=== PATIENT | female | born 1960 | race Caucasian/White ===

== ENCOUNTER 2021-03-29 15:51 | Emergency (ER) | payer MEDICARE ==
[2021-03-29 17:58] LABS: BASOPHIL 0.6 % (0-2); EOSINOPHIL 1.8 % (0-5); HCT 37.6 % (37.0-47.0); HGB 11.9 g/dl (12.5-16.0); LYMPHOCYTE 10.6 % (15-48); MCH 30.6 pg (25.0-31.0); MCHC 31.6 g/dL (32.0-36.0); MCV 96.7 fL (78.0-100.0); MONOCYTE 7.4 % (0-12); MPV 10.3 fL (6.0-9.5); NEUTROPHIL 79.3 % (41-80); NRBC 0; PLT 190 K/uL (150-400); RBC 3.89 M/uL (4.20-5.40); RDW 13.1 % (11.5-14.0)
[2021-03-29 18:19] LABS: BUN/CREAT RATIO (CALC) 11.5 RATIO; CREATININE 0.87 mg/dL (0.51-0.95); POTASSIUM 3.7 mmol/L (3.5-5.1)
== END 2021-03-29 19:25 | disposition home or self-care (01) ==
LOC: FER 15:51
PROVIDERS: Nurse Practitioner Family
DX: M25.561 Pain in right knee (principal); E03.9 Hypothyroidism, unspecified; F17.210 Nicotine dependence, cigarettes, uncomplicated; Z88.8 Allergy status to other drugs, medicaments and biological substances; Z91.018 Allergy to other foods; Z79.899 Other long term (current) drug therapy
CPT/HCPCS: 36415; 73560; 80048; 85025; 85379; 93971